=== PATIENT | male | born 2000 | race Caucasian/White ===

== ENCOUNTER 2022-05-30 16:41 | Emergency (ER) | payer MEDICAID ==
[~2022-05-30] VITALS: Ht 172.7 cm; Wt 77.1 kg
[2022-05-30] MEDS ORDERED: LIDOCAINE 1%-EPI 1:100,000 20 ML VIAL TP ONE (17:00)
[2022-05-30] MEDS ORDERED: TDAP [DIPH/PERTUSSIS/TET] 0.5 ML VIAL IM ONE ×2 (17:00→17:26)
--- NOTE | 2022-05-30 17:18 | NUR ---
BLANCA FIGUEREDO AT BEDSIDE
--- NOTE | 2022-05-30 17:36 | NUR ---
Patient discharged to home in stable condition. Written and verbal after care instructions given. Patient verbalizes understanding of instruction.
[2022-05-30 17:37] VITALS: BP 132/84
== END 2022-05-30 17:37 | disposition home or self-care (01) ==
LOC: ER 17:00
DX: S01.81XA Laceration without foreign body of other part of head, initial encounter (principal); S01.111A Laceration without foreign body of right eyelid and periocular area, initial encounter; W22.8XXA Striking against or struck by other objects, initial encounter; Y93.89 Activity, other specified; Y92.89 Other specified places as the place of occurrence of the external cause; Y99.8 Other external cause status
CPT/HCPCS: 90715